=== PATIENT | male | born 1955 | race Caucasian/White ===

== ENCOUNTER 2018-02-27 06:44 | Day surgery (SDC) | payer OTHER, SELFPAY ==
[2018-02-27] VITALS (8 sets, daily range): BP systolic 103–133; BP diastolic 64–92; PULSE 78–103; RESP 16; TEMP 36.6–37.1; O2SAT 94–97; BMI 31.8
--- NOTE | 2018-02-27 08:17 | PCM.OPRPT ---
Problem List (1) Screening for intestinal cancer Status: Acute Report of Operation Date of Procedure: 02/27/18 Pre-Operative Diagnosis: Screening for intestinal cancer Post-Operative Diagnosis: Minimal sigmoid diverticulosis Surgery/Procedure Performed:: Colonoscopy Description of Surgical Findings:: Timeout and informed consent was obtained. 62-year-old gentleman was taken to the endoscopy suite. He was placed in a left lateral decubitus position. Throughout the procedure he received an total 75 mg Demerol and 3.5 mg of Versed is intravenous sedation. Digital rectal exam performed. Mild to moderate hemorrhoidal changes. 3+ enlarged slightly firm prostate more in the right lobe than the left. No focal mass. Possible colonoscope inserted the rectum advanced through the sigmoid transverse and ascending colon with ease. With some transabdominal pressure the cecum ileocecal valve area was nicely achieved. Bowel prep was good there was still some liquid stool but that could be aspirated. The scope was then carefully withdrawn from the cecum ascending colon transverse colon descending colon sigmoid colon. There was some minimal scattered diverticulosis. Scope was retroflexed within the rectum some internal hemorrhoids noted. No active bleeding. Excess fluid and air was aspirated free. The procedure was completed with the patient tolerating it well. Impression Minimal scattered sigmoid diverticulosis. Firm prostate on digital palpation The patient has never had a previous screening colonoscopy. Next screening colonoscopy recommended in 10 years. I will asked the patient to follow-up his primary care regarding prostate findings potential need for PSA level. The patient has an umbilical hernia and a posterior neck mass which will be addressed at his discretion. Medications were given at 0801. The procedure was started at 0804. The cecum was reached at 0807. Exam was completed at 0815. Jose Luis Sullivan M.D., F.A.C.S. Cc: Dr. Adam Decker Type of Anesthesia:: IV Sedation
--- NOTE | 2018-02-27 08:28 | EKG12_ITS ---
Test Reason : ABN TRACING Blood Pressure : / mmHG Vent. Rate : 080 BPM Atrial Rate : 080 BPM P-R Int : 172 ms QRS Dur : 160 ms QT Int : 442 ms P-R-T Axes : 049 -24 115 degrees QTc Int : 509 ms Normal sinus rhythm Left bundle branch block Abnormal ECG No previous ECGs available Confirmed by NILS SANDOVAL, CAREY ([id number]), editor sound EDILBERTO CORDOBA ([id number]) on 03/02/2018 3:57:29 PM Referred By: Jose Luis Sullivan Confirmed By:CAREY WRAY MD
== END 2018-02-27 09:55 | disposition home or self-care (01) ==
LOC: EN 06:46 → AC 06:46
PROVIDERS: Family Provider Family Medicine; PCP Family Medicine; Visit Provider Surgery
PROC: 0DJD8ZZ Inspection of Lower Intestinal Tract, Via Natural or Artificial Opening Endoscopic (ICD-10-PCS; CPT 45378; principal; 2018-02-27 07:55)
DX: Z12.11 Encounter for screening for malignant neoplasm of colon (principal); K57.30 Diverticulosis of large intestine without perforation or abscess without bleeding; K64.8 Other hemorrhoids; N40.0 Benign prostatic hyperplasia without lower urinary tract symptoms; K42.9 Umbilical hernia without obstruction or gangrene; M19.90 Unspecified osteoarthritis, unspecified site; R22.1 Localized swelling, mass and lump, neck; Z96.642 Presence of left artificial hip joint; Z79.52 Long term (current) use of systemic steroids
CPT/HCPCS: 45378; 93005; 99152; 99153; J7120

== ENCOUNTER 2018-04-04 07:05 | Day surgery (SDC) | payer OTHER, SELFPAY ==
--- NOTE | 2018-04-04 | HERN_PTH ---
PATIENT: JAM CARLSON LOC: [facility] [place] U#:[id number] AGE/SX: 63/M ROOM: RE04/04/[address]: Dr. Jose Luis Sullivan MD : [id number] BED: DIS: 04/04/2018 SPEC #: [id number] RECD: 04/04/18 12:04 STATUS: PHU VERONIKA #: [id number] JANAY: 04/04/18 00:[address]: Jose Luis Sullivan DEPT: SURGICAL PATHOLOGY RECD BY: John Selby ENTERED: 04/05/18 12:04 SP TYPE: Hernia OTHR DR: Dr. Adam Decker MD Tissues: A - HERNIA B - Neck, NOS Procedures: Surgery Specimen Level II Surgery Specimen Level III HEADER OPERATION: Umbilical herniorrhaphy; excision left posterior neck subcutaneous mass PRE-OP DIAGNOSIS: Umbilical hernia; left posterior neck subcutaneous mass TISSUE SUBMITTED: A ? Hernia sac and contents, B ? Left posterior neck subcutaneous mass MICROSCOPIC DIAGNOSIS A. Hernia sac contents: Fragments of mature adipose tissue consistent with hernia sac and contents with chronic inflammation and reactive changes. B. Left posterior neck subcutaneous mass: Pieces of mature adipose tissue and skeletal muscle tissue. See comment. JORGE ALBERTO:alivia 04/06/18 COMMENT B. The lesion may represent lipoma. MICROSCOPIC DESCRIPTION Slides are reviewed. GROSS DESCRIPTION A - Received in fixative is one container labeled with the patient's name and designated hernia sac and contents. The specimen consists of two pieces of yellow adipose tissue that in aggregate measure 3 x 3 x 2.5 cm. Clip Loading Machine Adjuster sections are submitted in one cassette. B - Received in fixative is one container labeled with the patient's name and designated left posterior neck subcutaneous mass. The specimen consists of two pieces of soft tissue measuring 3 x 2.5 x 0.5 cm and 1 x 1 x 0.7 cm. Sections do not reveal any mass lesion. The specimen is totally submitted in four cassettes. / JORGE ALBERTO:alivia 04/05/18 TC:5 [facility]: [id number], [id number]
--- NOTE | 2018-04-04 07:05 | DT_ITS ---
This patient was seen during an EMR downtime April 02, 2018 - April 09, 2018. This patient may have a combination of paper and electronic documentation or all paper documentation. All documentation is viewable within the e-chart portion of [employer] for each patient visit.
--- NOTE | 2018-04-04 11:51 | EKG12_ITS ---
Test Reason : PRE OP Blood Pressure : / mmHG Vent. Rate : 062 BPM Atrial Rate : 062 BPM P-R Int : 172 ms QRS Dur : 164 ms QT Int : 488 ms P-R-T Axes : 021 -16 122 degrees QTc Int : 495 ms Normal sinus rhythm Left bundle branch block Abnormal ECG When compared with ECG of 27-FEB-2018 08:37, No significant change was found Confirmed by NILS SANDOVAL, CAREY ([id number]), development editor EDILBERTO CORODBA ([id number]) on 04/12/2018 4:38:21 PM Referred By: Jose Luis Sullivan Confirmed By:CAREY WRAY MD
[2018-04-07 09:27] LABS: Anion Gap 8 (5-15); BUN 15 mg/dL (7-18); Calcium,Total 8.8 mg/dL (8.5-10.1); Chloride 109 mmol/L (98-107); EST Glomerular Filtration Rate 80 mL/min (>60); Est Glom Filt Rate - Afr Amer 97 mL/min (>60); Glucose 113 mg/dL (74-106); Potassium 4.2 mmol/L (3.5-5.1); Sodium Level 142 mmol/L (136-145)
[2018-04-09 14:38] LABS: Hematocrit 49.2 % (40-54); Hemoglobin 16.7 g/dl (13.0-16.5); Red Blood Count 5.65 M/mm3 (4.6-6.2); White Blood Count 9.3 K/mm3 (4.4-11.0)
[2018-04-09 14:39] LABS: Mean Corp Hgb Conc 33.9 g/gl (32-36); Mean Corpuscular Hgb 29.6 pg (27.0-32.0); Mean Corpuscular Volume 87.1 fL (80-94); Mean Platelet Vol. 11.9 fl (6.2-12.0); Platelet Count 169 K/mm3 (150-450); RBC Distribution Width CV 12.6 % (11.6-14.6); RBC Distribution Width SD 39.8 fl (35.1-43.9); Scan Indicated on CBC? Y/N NO
== END 2018-04-04 12:17 | disposition home or self-care (01) ==
LOC: SDC 04-05 11:27
PROVIDERS: Family Provider Family Medicine; PCP Family Medicine; Visit Provider Surgery
PROC: (CPT 11423; principal; 2018-04-04 09:00)
PROC: (CPT 11423; 2018-04-04 09:00)
DX: K42.9 Umbilical hernia without obstruction or gangrene (principal); I25.10 Atherosclerotic heart disease of native coronary artery without angina pectoris; L98.8 Other specified disorders of the skin and subcutaneous tissue
CPT/HCPCS: 00830; 11423; 49585; 36415; 80048; 85027; 88302; 88304; 93005; J7120; C1781; J2405; J3490